=== PATIENT | female | born 1990 | race Caucasian/White ===

== ENCOUNTER → 2022-12-08 | Outpatient (CLI) | payer OTHER ==
--- NOTE | 2022-12-08 18:28 | CT ---
EXAMINATION TYPE: CT abdomen pelvis wo con CT DLP: 336.1 mGycm, Automated exposure control for dose reduction was used. 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 Cor onal and sagittal reformats were performed. FINDINGS: Evaluation is limited due to lack of intravenous contrast. LOWER CHEST: Unremarkable ABDOMEN LIVER: Right hepatic dome cyst measuring 2.1 cm. Additional smaller couple cysts identified within th e liver. GALLBLADDER AND BILE DUCTS: Contracted gallbladder. No biliary duct dilatation. PANCREAS: Unremarkable noncontrast appearance. SPLEEN: Unremarkable noncontrast appearance. ADRENAL GLANDS: Unremarkable noncontrast appearance.. KIDNEYS AND URETERS: No evidence of hydronephrosis. Both kidneys are mildly enlarged and demonstrate multiple hypoattenuating cysts. There is a nonobstructive calculus within the superior pole of the ri ght kidney measuring 5 mm. Additional nonobstructive smaller calculi in the right kidney. Additional nonobstructive calculi within the left kidney with largest measuring up to 3 mm in the midportion. Th ere is some regions of linear hyperattenuation within both kidneys likely representing septations. Po sterior right mid kidney cortical 1.5 cm hyperdense lesion. Additional small hypodense lesions demons trated within the cortex of the left kidney with largest measuring up to 0.9 cm in the inferior pole. PELVIS BLADDER: Unremarkable REPRODUCTIVE: Unremarkable noncontrast appearance. ABDOMEN & PELVIS STOMACH AND BOWEL: Stomach and duodenum are unremarkable. Few scattered colonic distal diverticula. E nteric contrast reaches the mid small bowel. No focal bowel wall thickening or surrounding inflammato ry changes. No evidence of bowel obstruction. PERITONEUM: No evidence of pneumoperitoneum or free fluid. VASCULATURE: No evidence of aortic aneurysm. MUSCULOSKELETAL: No acute osseous abnormalities LYMPH NODES: No gross evidence for lymphadenopathy. SOFT TISSUE/ABDOMINAL WALL: Unremarkable IMPRESSION: 1. No acute abdominal/pelvic process. 2. Multiple bilateral renal cysts are identified within both kidneys with a few hyperdense cortical l esions within both kidneys likely representing proteinaceous/hemorrhagic cysts. Findings are consiste nt with reported polycystic kidney disease. Evaluation is limited due to lack of intravenous contrast . This can be further evaluated with renal ultrasound as clinically indicated. 3. Nonobstructive bilateral renal calculi. 4. Hepatic cysts.
--- NOTE | 2022-12-10 08:41 | MR ---
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 IV Contrast: None Findings: Vertebral arteries: The vertebral arteries are patent. Vertebral arteries are: Right dominant. Basilar artery: The basilar artery is intact. The basilar artery bifurcation is normal. Internal Carotid arteries: The cervical, petrous, cavernous and supraclinoid segments are normal. The re are 4 vessels arising off the basilar artery no aneurysmal dilation. DOLORES: Patent with no evidence of aneurysm. ACOM: Present without evidence of aneurysm. MCA: Patent with no evidence of aneurysm. COATER HELPER: Patent with no evidence of aneurysm. PCOM: Hypoplastic bilaterally. IMPRESSION: No evidence of aneurysm or significant stenosis.
== END | disposition home or self-care (01) ==
LOC: RADCTMAIN 14:34
PROVIDERS: ATTEND Internal Medicine
DX: Q61.3 Polycystic kidney, unspecified (principal); K76.89 Other specified diseases of liver; N20.0 Calculus of kidney; N28.89 Other specified disorders of kidney and ureter
CPT/HCPCS: 70544; 74176

== ENCOUNTER → 2023-09-30 | Outpatient (CLI) | payer MEDICARE, OTHER ==
--- NOTE | 2023-09-30 12:44 | US ---
EXAMINATION TYPE: US kidneys/renal and bladder DATE OF EXAM: 09/30/2023 COMPARISON: NONE CLINICAL INDICATION: Female, 32 years old with history of Q61.3 PKD; polycystic kidney disease EXAM MEASUREMENTS: Right Kidney: 12.3 x 5.2 x 5.8 cm Left Kidney: 15.3 x 6.8 x 6.4 cm Right Kidney: multiple cystic lesions visualized, largest = 2.1 x 1.8 x 2.3cm Left Kidney: multiple cystic lesions visualized, largest = 3.2 x 3.0 x 3.3cm. prominent collecting sy stem. stone mid = 0.6cm Bladder: appears wnl Bilateral Jets seen: no IMPRESSION: 1. Multiple bilateral renal cysts. Findings can be compatible with polycystic kidney disease. 2. Nonobstructing left renal stone
== END | disposition home or self-care (01) ==
LOC: RADUSWWP 11:21
PROVIDERS: ATTEND Internal Medicine Nephrology
DX: N20.0 Calculus of kidney (principal); Q61.3 Polycystic kidney, unspecified
CPT/HCPCS: 76770